=== PATIENT | male | born 1935 | race Caucasian/White ===

== ENCOUNTER → 2016-09-29 | Outpatient (CLI) | payer OTHER, MEDICARE ==
[~2016-09-29] MED LIST: IOPAMIDOL (ISOVUE-300) 100 ML BTL ONE
[2016-09-29 14:59] LABS: CREATININE 1.4 mg/dL (0.7-1.3)
== END ==
LOC: FIMAGING 14:25
PROVIDERS: ATTEND Internal Medicine
DX: Z09 Encounter for follow-up examination after completed treatment for conditions other than malignant neoplasm (principal); K86.2 Cyst of pancreas; K57.30 Diverticulosis of large intestine without perforation or abscess without bleeding
CPT/HCPCS: 74177; Q9967

== ENCOUNTER → 2018-08-09 | Outpatient (CLI) | payer OTHER, MEDICARE | LOC: BHFA 08:30 | PROVIDERS: ATTEND Internal Medicine Cardiovascular Disease | DX: R06.02 Shortness of breath (principal); I25.10 Atherosclerotic heart disease of native coronary artery without angina pectoris | CPT/HCPCS: 78452; 93017; A9500 ==

== ENCOUNTER 2018-09-16 17:39 | Emergency (ER) | payer OTHER, MEDICARE | END 2018-09-16 20:49 | disposition home or self-care (01) ==